=== PATIENT | male | born 1940 | race Caucasian/White ===

== ENCOUNTER 2018-09-27 08:13 | Outpatient (CLI) | payer MEDICARE, BC ==
[~2018-09-27] VITALS: Ht 175.3 cm; Wt 77.0 kg
[2018-09-27] VITALS (8 sets, daily range): BP systolic 130–144; BP diastolic 61–69
[2018-09-27] MEDS ORDERED: aminophylline 250mg/10ml inj. IV PRN (09:10)
[2018-09-27] MEDS ORDERED: normal saline 500ml IV soln 500 ML IV ONE (09:10)
[2018-09-27] MEDS ORDERED: regadenoson 0.4mg/5ml syringe IV ONE ×2 (09:10→10:02)
[2018-09-27] MEDS ORDERED: nitroGLYCERIN 0.4mg SUBLingual tab SL PRN (09:10)
[2018-09-27] MEDS ORDERED: aminophylline inj. 10 ML IV ONE (10:02)
== END 2018-09-27 23:59 | disposition home or self-care (01) ==
LOC: RAD 08:13
PROVIDERS: ATTEND Internal Medicine Cardiovascular Disease
DX: I08.8 Other rheumatic multiple valve diseases (principal); I48.0 Paroxysmal atrial fibrillation; R06.02 Shortness of breath; I10 Essential (primary) hypertension; E10.8 Type 1 diabetes mellitus with unspecified complications; Z88.8 Allergy status to other drugs, medicaments and biological substances; Z88.1 Allergy status to other antibiotic agents; Z88.4 Allergy status to anesthetic agent
CPT/HCPCS: 78452; 93017; 93306; A9500; J0280; J7030

== ENCOUNTER 2019-01-17 10:14 | Day surgery (SDC) | payer MEDICARE, BC ==
[2019-01-16 16:14] LABS: BASOPHILS % (AUTO) 0.7 % (0-1); EOSINOPHILS # (AUTO) 0.3 X10'3 (0-0.9); EOSINOPHILS % (AUTO) 6.8 % (0-6); HEMATOCRIT 36.8 % (42.0-52.0); HEMOGLOBIN 12.3 g/dl (14.0-17.9); LYMPHOCYTES # (AUTO) 1.4 X10'3 (1.1-4.8); LYMPHOCYTES % (AUTO) 28.8 % (21-51); MEAN CORPUSCULAR HGB CONC 33.5 g/dL (33.0-36.5); MEAN CORPUSCULAR VOLUME 104.7 FL (78-98); MEAN PLATELET VOLUME 8.3 FL (7.4-10.4); MONOCYTES # (AUTO) 0.5 X10'3 (0-0.9); MONOCYTES % (AUTO) 11.1 % (2-12); NEUTROPHILS # (AUTO) 2.5 X10'3 (1.8-7.7); NEUTROPHILS % (AUTO) 52.6 % (42-75); PLATELET COUNT 181 X10'3 (140-440); RED BLOOD COUNT 3.52 X10'6 (4.70-6.10); WHITE BLOOD COUNT 4.8 X10'3 (4.5-11.0)
[2019-01-16 16:25] LABS: ALBUMIN 3.2 G/DL (3.4-5.0); ANION GAP 10 (8-16); BLOOD UREA NITROGEN 14 MG/DL (7-18); BUN/CREATININE RATIO 3.6 (5.4-32.0); CALCIUM 8.6 MG/DL (8.5-10.1); CHLORIDE 104 MMOL/L (99-107); CREATININE 3.87 MG/DL (0.60-1.10); GLUCOSE 84 MG/DL (70-104); SODIUM 141 MMOL/L (135-145); eGFR 15 ML/MIN
[2019-01-16 16:50] LABS: PARTIAL THROMBOPLASTIN TIME 34 SECONDS (22-32)
[~2019-01-17] VITALS: Ht 175.3 cm; Wt 72.3 kg
[2019-01-17] VITALS (11 sets, daily range): BP systolic 129–178; BP diastolic 65–106
[2019-01-17] MEDS ORDERED: diphenhydrAMINE 25mg capsule PO PRN (10:35)
[2019-01-17] MEDS ORDERED: LORazepam 0.5 MG tablet PO PRN (10:35)
[2019-01-17] MEDS ORDERED: normal saline 1,000 ML IV SCH (10:35)
[2019-01-17] MEDS ORDERED: midazolam 2 mg/2 ml injection ONE (11:10)
[2019-01-17] MEDS ORDERED: heparin 1,000unit/ml 10ml vial 10 ML ONE (11:10)
[2019-01-17] MEDS ORDERED: fentaNYL/PF 50MCG/1 ML 2ML syringe ONE (11:10)
[2019-01-17] MEDS ORDERED: iohexol 350MG/ML 100ml bottle IV ONE (11:10)
[2019-01-17] MEDS ORDERED: LIDOcaine 1% (10mg/ml)w/preservative injection 20ml MDV ONE (11:10)
[2019-01-17] MEDS ORDERED: nitroGLYCERIN-Tridil 50MG/D5W 250 ML IV ONE (11:10)
[2019-01-17] MEDS ORDERED: iohexol 350 MG/ML 50ML vial IV ONE ×2 (11:10→13:33)
[2019-01-17] MEDS ORDERED: LABE300T2 PO (12:58)
[2019-01-17] MEDS ORDERED: MINO10TA16 PO (12:58)
[2019-01-17] MEDS ORDERED: MAGN200T5 PO (12:58)
[2019-01-17] MEDS ORDERED: CALC-964 PO (12:58)
[2019-01-17] MEDS ORDERED: sodium bicarbonate PO (12:58)
[2019-01-17] MEDS ORDERED: MYCO360T PO (12:58)
[2019-01-17] MEDS ORDERED: FURO-149 PO (12:58)
[2019-01-17] MEDS ORDERED: HYDR-4070 PO (12:58)
[2019-01-17] MEDS ORDERED: CYAN10006 IM (12:58)
[2019-01-17] MEDS ORDERED: DILT120C51 PO (12:58)
[2019-01-17] MEDS ORDERED: WARF1TAB PO (12:58)
[2019-01-17] MEDS ORDERED: TACR1CAP PO (12:58)
== END 2019-01-17 19:00 | disposition home or self-care (01) ==
LOC: SSTAY O 10:14
PROVIDERS: ATTEND Internal Medicine Cardiovascular Disease
DX: I25.10 Atherosclerotic heart disease of native coronary artery without angina pectoris (principal); I10 Essential (primary) hypertension; E78.5 Hyperlipidemia, unspecified; I48.1 Persistent atrial fibrillation
CPT/HCPCS: 36415; 80048; 85025; 85610; 85730; 93458; 99152; 99153; C1769; J1644; J2001; J2250; J3010; J7030; Q0163; Q9967; 93005; A4620; A6258; C1760; J3490